=== PATIENT | male | born 1960 | race Caucasian/White ===

== ENCOUNTER 2017-08-10 09:52 | Emergency (ER) | payer MEDICAID ==
[2017-08-10 10:00] VITALS: BP 118/73; PULSE 68; RESP 18; TEMP 97.7; O2SAT 96
--- NOTE | 2017-08-10 10:12 | C.PDOC ---
History Of Present Illness 56 y/o male presents to the ER complaining of bilateral tinnitus which has been present for the past 5 days. Patient denies having any exposure to loud noise. Patient denies any head trauma and recent viral illness. Time Seen by Provider: 08/10/17 10:05 Chief Complaint (Nursing): ENT Problem History Per: Patient History/Exam Limitations: None Onset/Duration Of Symptoms: Days Current Symptoms Are (Timing): Still Present Severity: Moderate Past Medical History Reviewed: Historical Data, Nursing Documentation, Vital Signs Vital Signs: Last Vital Signs Temp 97.7 F 08/10/17 09:59 Pulse 68 08/10/17 09:59 Resp 18 08/10/17 10:24 BP 118/73 08/10/17 09:59 Pulse Ox 96 08/10/17 11:10 - Medical History PMH: No Chronic Diseases Surgical History: No Surg Hx Family History: States: No Known Family Hx - Social History Hx Tobacco Use: No Hx Alcohol Use: Yes Hx Substance Use: No - Immunization History Hx Tetanus Toxoid Vaccination: No Hx Influenza Vaccination: No Hx Pneumococcal Vaccination: No Review Of Systems Constitutional: Negative for: Fever, Chills ENT: Positive for: Ear Pain Physical Exam - Physical Exam Appears: Non-toxic, No Acute Distress Skin: Normal Color, Warm Head: Atraumatic, Normacephalic Eye(s): bilateral: Normal Inspection Ear(s): Bilateral: Normal Nose: Normal Oral Mucosa: Moist Neck: Supple Chest: Symmetrical Extremity: Normal ROM Neurological/Psych: Oriented x3, Normal Speech, Normal Motor, Normal Sensation ED Course And Treatment O2 Sat by Pulse Oximetry: 96 (RA) Pulse Ox Interpretation: Normal Progress Note: Patient given Motrin PO.Patient discharged and told to follow up with ENT. Medical Decision Making Medical Decision Making: mild tinnitus b/l x 5 days, no h/o same. no loud noise exposures, normal ear exam ? viral cochlear irritation. NSAIDS and opt f/u w ENT as needed. Disposition Doctor Will See Patient In The: Office Counseled Patient/Family Regarding: Studies Performed, Diagnosis - Disposition Referrals: Scott Thurman MD [Staff Provider] - Carmen Caba MD [Medical Doctor] - Disposition: HOME/ ROUTINE Disposition Time: 10:12 Condition: GOOD Additional Instructions: Ibuprofeno/Advil 400 mg cada 6 horas gordon necessario Sigue con Dra Caba o' con el Orolaryngologo- Dr. Thurman- gordon necessario. Instructions: Tinnitus (Ringing in the Ears) Forms: [facility] (Khmer) Print Language: ITALIAN - Clinical Impression Clinical Impression: Tinnitus - Scribe Statement The provider has reviewed the documentation as recorded by the Sathyaibe Terence Loera Provider Attestation: All medical record entries made by the Sathyaibe were at my direction and personally dictated by me. I have reviewed the chart and agree that the record accurately reflects my personal performance of the history, physical exam, medical decision making, and the department course for this patient. I have also personally directed, reviewed, and agree with the discharge instructions and disposition.
== END 2017-08-10 10:24 | disposition home or self-care (01) ==
LOC: C.ER 09:52
DX: H93.13 Tinnitus, bilateral (principal)